=== PATIENT | male | born 1965 | race Caucasian/White ===

== ENCOUNTER 2023-05-21 11:07 | Day surgery (SDC) | payer BC, SELFPAY ==
--- NOTE | 2023-05-20 09:55 | HO.ANESPROP2 ---
Documented by User: Natalia Weaver NP 05/20/23 09:57 HPI - Anesthesia Eval Consult details Narrative: 57yo M for Upper Endoscopy and Colonoscopy [facility] Past Medical History Medical History (Updated 05/20/23 @ 09:56 by Natalia Weaver NP) Eosinophilic esophagitis Nasal polyps HTN (hypertension) Surgical History Surgical History (Updated 05/20/23 @ 09:56 by Natalia Weaver NP) Hx of colonoscopy Hx of esophagogastroduodenoscopy Social History Social History Patient Tobacco Use Status: Former Tobacco user Quit Date: 2012 Use of substances other than those prescribed or required for medical reasons: No Are you DNR?: No Advance Directives: No Advance Directives Information Provided: Yes Meds Allergies Allergy/AdvReac Type Severity Reaction Status Date / Time No Known Allergies Allergy Unverified 11/05/19 14:46 [No Known Allergies*] Assessment and Plan Assessment Anesthesia Assessment: Chart Reviewed Documented by User: Rashid Barros MD 05/21/23 12:50 [facility] Past Medical History Medical History (Updated 05/20/23 @ 09:56 by Natalia Weaver NP) Eosinophilic esophagitis Nasal polyps HTN (hypertension) Family History Family history of problems with anesthesia: No Surgical History Surgical History (Updated 05/20/23 @ 09:56 by Natalia Weaver NP) Hx of colonoscopy Hx of esophagogastroduodenoscopy History of Problems with Anesthesia: No Social History Social History Patient Tobacco Use Status: Former Tobacco user Quit Date: 2012 Use of substances other than those prescribed or required for medical reasons: No Are you DNR?: No Advance Directives: No Advance Directives Information Provided: Yes Meds Allergies Allergy/AdvReac Type Severity Reaction Status Date / Time No Known Allergies Allergy Unverified 11/05/19 14:46 [No Known Allergies*] Exam Airway Mallampati Class: I TM Dist: >3cm Neck ROM: Full Loose/Missing/Broken Teeth: No Heart: ok Lungs: ok Assessment and Plan Assessment Anesthesia Assessment: Anesthesia Plan Discussed Final Anesthetic Review Family History of Problems with Anesthesia: No History of Problems with Anesthesia: No NPO: Yes ASA Class: II Final Preanesthetic Review: No Changes in Pt Med Stat, Meds/Allgs Chart Reviewed, Consent Obtained/Reviewed and Anes Risks/Benef Reviewed Patient Risk: Low Procedure Risk: Intermediate Anesthetic Plan Anesthetic Plan: Agree w/ Assess. and Plan and TIVA Disposition: Standard PACU
[2023-05-21 11:44] VITALS: BMI 24.6
[2023-05-21 11:47] VITALS: BP 130/77; PULSE 88; RESP 18; TEMP 36.8; O2SAT 98
[2023-05-21] MEDS: Lactated Ringers 1,000 ML 100 ML IVCONT (12:18)
--- NOTE | 2023-05-21 12:30 | MHC.SHP ---
Pre-Procedural Eval Section A - 24 Hr Update-Section A only Date of Service: 05/21/23 The patient is an INPATIENT: No Changes since office visit: No Cold of Flu in the past 2 weeks, No New Medical Problems, No Changes in Medication and No Patient answered all questions The patient has been examined within 24 hours of the surgical procedure. The History & Physical has been completed within 30 days and I have reviewed it.: Yes Section B - Complete if H&P > 30 days Chief Complaint: Encounter for screening for malignant neoplasm of Allergies: Allergies Allergy/AdvReac Type Severity Reaction Status Date / Time No Known Allergies Allergy Unverified 11/05/19 14:46 [No Known Allergies*] Plan I have reviewed the history and physical and performed a pertinent physical examination on my patient. No changes have occurred unless specified. Time Spent With Patient Time: Total time managing care of this patient today ____ minutes.
[2023-05-21 13:30] VITALS: BP 122/82; PULSE 75; RESP 18; TEMP 36.5; O2SAT 99
[2023-05-21 13:45] VITALS: BP 128/86; PULSE 66; RESP 16; TEMP 36.2; O2SAT 100
--- NOTE | 2023-05-22 00:32 | OP_ITS ---
DATE OF SERVICE: 05/21/2023 SURGEON: Raoul Galdamez MD INDICATIONS: 1. Eosinophilic esophagitis. 2. Colon cancer screening. 3. Dysphagia. PREOPERATIVE DIAGNOSIS: POSTOPERATIVE DIAGNOSIS: PROCEDURE PERFORMED: ESTIMATED BLOOD LOSS: COMPLICATIONS: ANESTHESIA: Monitored anesthesia care. ASSISTANTS: SPECIMENS: PROCEDURES: Upper endoscopy with biopsy and balloon dilation, colonoscopy to the terminal ileum with biopsy. DESCRIPTION OF PROCEDURE: A history and physical performed. The risks and benefits of the procedure were explained to the patient. Informed consent was obtained. The patient was placed in the left lateral decubitus position. The Olympus video gastroscope was introduced into the esophagus, stomach, and duodenum. Examination was performed. The scope was removed. He was repositioned for colonoscopy. A digital rectal exam was performed and was found to be normal. The Olympus pediatric video colonoscope was introduced into the rectum and advanced to the cecum. The cecum was identified by transillumination, palpation, and identification of ileocecal valve. Examination was performed. The scope was removed. He tolerated both procedures well and was taken to recovery area in stable condition. FINDINGS: Upper endoscopy: 1. Esophagus: The esophagus showed a slight distal narrowing. The scope easily passed through this. There was no endoscopic esophagitis identified. Balloon dilation of the lower esophageal sphincter was performed at 15 and 16.5 mm for 60 seconds with mild mucosal disruption and no complications. Biopsies were obtained from the EG junction and from 30 cm. 2. Stomach: The stomach showed no evidence of masses, ulcers, or polyps. 3. Duodenum: The bulb and second portion were normal. Colonoscopy: The terminal ileum was examined and appeared normal. The visualized colonic mucosa was normal. The quality of the prep was good. There was a single polyp identified and removed with biopsy forceps that measured less than 5 mm. This was located at 45 cm. There was mild sigmoid diverticulosis. Retroflexed examination showed moderate-sized internal hemorrhoids. IMPRESSION: 1. Eosinophilic esophagitis. 2. Colon polyp. RECOMMENDATION: Follow up the biopsy results. MD YUKI Monreal/LIZETT / [id number]
== END 2023-05-21 14:17 | disposition home or self-care (01) ==
PROVIDERS: PCP Internal Medicine; Visit Provider Internal Medicine Gastroenterology
PROC: (CPT 45380; principal; 2023-05-21 15:00)
DX: Z12.11 Encounter for screening for malignant neoplasm of colon (principal); D12.6 Benign neoplasm of colon, unspecified; K57.30 Diverticulosis of large intestine without perforation or abscess without bleeding; K64.8 Other hemorrhoids; K20.0 Eosinophilic esophagitis; R13.10 Dysphagia, unspecified; I10 Essential (primary) hypertension
CPT/HCPCS: 45380; 43249; 88305; C1726; J2704